=== PATIENT | male | born 1960 | race Two or more races ===

== ENCOUNTER 2019-11-18 05:06 | Inpatient (IN) | payer MEDICAID ==
[2019-11-18] VITALS (14 sets, daily range): BP systolic 102–143; BP diastolic 64–82
[~2019-11-18] VITALS: Ht 170.2 cm; Wt 95.3 kg
[2019-11-18] MEDS ORDERED: FAMOTIDINE/PF INJ 20 MG/2 ML VIAL IV ONE (06:20)
[2019-11-18] MEDS ORDERED: MIDAZOLAM HCL 2 MG/2ML VIAL ONE (06:20)
[2019-11-18] MEDS ORDERED: FENTANYL PF 250MCG/5ML AMPUL ONE (06:20)
[2019-11-18] MEDS ORDERED: ANESTHESIA TRAY IN PYXIS 1 EA TRAY MC ONE (06:32)
[2019-11-18] MEDS ORDERED: BUPIVACAINE 0.5 % PF 150 MG/30 ML VIAL ONE (07:28)
[2019-11-18] MEDS ORDERED: ZOLPIDEM TARTRATE 10 MG TABLET PO PRN (12:00)
[2019-11-18] MEDS ORDERED: DOCUSATE SODIUM 250 MG CAPSULE PO PRN (12:00)
[2019-11-18] MEDS ORDERED: SENNOSIDES 8.6 MG TABLET PO PRN (12:00)
[2019-11-18] MEDS ORDERED: BISACODYL SUPP (10 MG) 10 MG/SUPP.RECT SUPP.RECT RC PRN (12:00)
[2019-11-18] MEDS ORDERED: ONDANSETRON HCL/PF 4 MG/2 ML VIAL IV PRN (12:00)
[2019-11-18] MEDS: IV D5/0.45 NACL 1,000 ML IV PRN ×2 (13:25→23:22)
[2019-11-18] MEDS: ANCEF 1 GM/50 ML D5W IV SCH ×4 (15:40→23:34)
[2019-11-18] MEDS: HYDROCODONE/APAP 5/325MG 1 EACH TABLET PO PRN (21:16)
[2019-11-19] VITALS (8 sets, daily range): BP systolic 103–140; BP diastolic 54–89
[2019-11-19] MEDS ORDERED: PIPERACILLIN /TAZOBACTAM 3.375 G in IV D5W 100 ML IV SCH ×2
[2019-11-19] MEDS: HYDROCODONE/APAP 5/325MG 1 EACH TABLET PO PRN ×2 (03:20→09:43)
[2019-11-19 06:47] LABS: BASOPHILS % (AUTO) 0.5 % (0.0-2.0); EOSINOPHILS % (AUTO) 1.9 % (0.0-6.0); LYMPHOCYTES # (AUTO) 1.6 /CMM (0.8-4.8); LYMPHOCYTES % (AUTO) 28.7 % (20.0-44.0); MEAN CORPUSCULAR HGB CONC 33 g/dl (31.0-36.0); MEAN CORPUSCULAR VOLUME 86 fL (80-96); MONOCYTES # (AUTO) 0.6 /CMM (0.1-1.30); MONOCYTES % (AUTO) 10.3 % (2.0-12.0); NEUTROPHILS # (AUTO) 3.2 /CMM (1.8-8.9); NEUTROPHILS % (AUTO) 58.6 % (43.0-81.0); PLATELET COUNT (AUTO) 248 /CMM (150-450); RED BLOOD CELL COUNT(AUTO) 2.19 MIL/uL (4.5-6.0); WHITE BLOOD COUNT (AUTO) 5.5 K/uL (4.3-11.0)
[2019-11-19 06:50] LABS: HEMATOCRIT 19 % (39-51); HEMOGLOBIN 6.2 g/dL (13.5-17.5)
[2019-11-19 06:59] LABS: CALCIUM, SERUM 7.5 mg/dL (8.5-10.1); CREATININE 1.7 mg/dL (0.6-1.3); POTASSIUM 3.7 mmol/L (3.5-5.1)
[2019-11-19] MEDS ORDERED: INSULIN REGULAR, HUMAN 100 UNIT/ML 10 ML VIAL SQ ONE (08:30)
[2019-11-19] MEDS: IV D5/0.45 NACL 1,000 ML IV PRN (09:15)
[2019-11-19 10:38] LABS: EOSINOPHILS % (MANUAL) 2 % (0-4); LYMPHOCYTES % (MANUAL) 25 % (16-48); MONOCYTES % (MANUAL) 12 % (0-11.0); NEUTROPHILS % (MANUAL) 61 (42-76)
[2019-11-19] MEDS ORDERED: IV NS 0.9% 1,000 ML IV SCH (11:00)
[2019-11-19] MEDS ORDERED: DEXTROSE 50%-WATER 50 ML DISP.SYRIN IV PRN (11:00)
[2019-11-19] MEDS: IV NS 0.9% 1,000 ML IV PRN ×2 (11:49→22:01)
[2019-11-19] MEDS: BLOOD SUGAR DIAGNOSTIC 1 EACH STRIP IN SCH ×3 (12:14→21:55)
[2019-11-19] MEDS ORDERED: PIPERACILLIN /TAZOBACTAM 3.375 G in IV D5W 50 ML IV ONE (18:00)
[2019-11-19] MEDS ORDERED: FEE PK DOSING 1 MIN EA MC ONE (18:02)
[2019-11-19] MEDS: VANCOMYCIN 1.5 GM in IV D5W 500ml IV SCH (20:58)
[2019-11-19] MEDS: ACETAMINOPHEN 325 MG TABLET PO PRN (21:57)
[2019-11-19] MEDS: INSULIN GLARGINE, 100 UNIT/ML CARTRIDGE SQ SCH (22:08)
[2019-11-20] MEDS ORDERED: PIPERACILLIN /TAZOBACTAM 3.375 G in IV D5W 50 ML IV ONE ×2
[2019-11-20] MEDS: PIPERACILLIN /TAZOBACTAM 3.375 G in IV D5W 100 ML IV SCH ×4 (00:50→23:09)
[2019-11-20] MEDS: HYDROCODONE/APAP 5/325MG 1 EACH TABLET PO PRN ×3 (01:00→17:12)
[2019-11-20] MEDS: *INSULIN REGULAR(HUMULIN R)HUM 100 UNIT/ML VIAL SQ PRN ×2 (01:00→21:07)
[2019-11-20] MEDS: BLOOD SUGAR DIAGNOSTIC 1 EACH STRIP IN SCH ×4 (06:06→21:07)
[2019-11-20] MEDS: INSULIN REGULAR, HUMAN 100 UNIT/ML 3 ML VIAL SQ PRN (06:07)
[2019-11-20 07:05] LABS: HEMOGLOBIN 7.8 g/dL (13.5-17.5)
[2019-11-20 08:00] VITALS: BP 139/80
[2019-11-20 16:00] VITALS: BP 149/70
[2019-11-20 20:00] VITALS: BP 98/53
[2019-11-20] MEDS: VANCOMYCIN 1.5 GM in IV D5W 500ml IV SCH (20:50)
[2019-11-20] MEDS: INSULIN GLARGINE, 100 UNIT/ML CARTRIDGE SQ SCH (21:07)
[2019-11-20 21:32] VITALS: BP 98/53
[2019-11-21 04:00] VITALS: BP 105/66
[2019-11-21] MEDS: HYDROCODONE/APAP 5/325MG 1 EACH TABLET PO PRN (06:17)
[2019-11-21] MEDS: BLOOD SUGAR DIAGNOSTIC 1 EACH STRIP IN SCH ×4 (06:20→22:12)
[2019-11-21] MEDS: INSULIN REGULAR, HUMAN 100 UNIT/ML 3 ML VIAL SQ PRN (06:21)
[2019-11-21 07:03] LABS: BASOPHILS % (AUTO) 0.3 % (0.0-2.0); EOSINOPHILS % (AUTO) 0.1 % (0.0-6.0); HEMATOCRIT 22 % (39-51); HEMOGLOBIN 7.3 g/dL (13.5-17.5); LYMPHOCYTES # (AUTO) 1.6 /CMM (0.8-4.8); LYMPHOCYTES % (AUTO) 9.3 % (20.0-44.0); MEAN CORPUSCULAR HGB CONC 33 g/dl (31.0-36.0); MEAN CORPUSCULAR VOLUME 85 fL (80-96); MONOCYTES # (AUTO) 1.2 /CMM (0.1-1.30); NEUTROPHILS # (AUTO) 14.1 /CMM (1.8-8.9); NEUTROPHILS % (AUTO) 83.3 % (43.0-81.0); PLATELET COUNT (AUTO) 255 /CMM (150-450); RED BLOOD CELL COUNT(AUTO) 2.61 MIL/uL (4.5-6.0); WHITE BLOOD COUNT (AUTO) 16.9 K/uL (4.3-11.0)
[2019-11-21 07:40] LABS: CALCIUM, SERUM 8.2 mg/dL (8.5-10.1); CREATININE 1.7 mg/dL (0.6-1.3); MAGNESIUM 1.5 mg/dL (1.8-2.4); PHOSPHORUS 3.3 mg/dL (2.5-4.9); POTASSIUM 4.2 mmol/L (3.5-5.1)
[2019-11-21 08:00] VITALS: BP 94/51
[2019-11-21] MEDS: PIPERACILLIN /TAZOBACTAM 3.375 G in IV D5W 100 ML IV SCH ×2 (08:15→15:56)
[2019-11-21] MEDS ORDERED: PIPE3.379 IV (09:49)
[2019-11-21] MEDS ORDERED: VANC1.5V3 IV (09:49)
[2019-11-21] MEDS ORDERED: MAGNESIUM OXIDE 400 MG TABLET PO ONE (11:30)
[2019-11-21] MEDS ORDERED: HYDROCODONE/APAP 5/325MG 1 EACH TABLET PO PRN (12:30)
[2019-11-21 16:18] VITALS: BP 94/56
[2019-11-21 20:05] VITALS: BP 117/60
[2019-11-21] MEDS: ACETAMINOPHEN 325 MG TABLET PO PRN (20:34)
[2019-11-21] MEDS: MORPHINE SULFATE INJ 2 MG/ML DISP.SYRIN IV PRN (20:35)
[2019-11-21] MEDS: INSULIN GLARGINE, 100 UNIT/ML CARTRIDGE SQ SCH (22:00)
[2019-11-21] MEDS: VANCOMYCIN 1.5 GM in IV D5W 500ml IV SCH (22:20)
[2019-11-22] MEDS: PIPERACILLIN /TAZOBACTAM 3.375 G in IV D5W 100 ML IV SCH ×3 (00:18→17:33)
[2019-11-22] MEDS: MORPHINE SULFATE INJ 2 MG/ML DISP.SYRIN IV PRN ×3 (03:45→15:23)
[2019-11-22] MEDS: BLOOD SUGAR DIAGNOSTIC 1 EACH STRIP IN SCH ×4 (06:42→21:48)
[2019-11-22 07:05] LABS: CALCIUM, SERUM 8.3 mg/dL (8.5-10.1); CREATININE 1.9 mg/dL (0.6-1.3); MAGNESIUM 1.6 mg/dL (1.8-2.4); POTASSIUM 3.7 mmol/L (3.5-5.1)
[2019-11-22 09:13] VITALS: BP_SYST 100; BP_SYST 124; BP_DIAS 72
[2019-11-22] MEDS ORDERED: Magnesium 1GM/D5W 100ML PREMIX 100 ML IV SCH (11:35)
[2019-11-22] MEDS: ACETAMINOPHEN 325 MG TABLET PO PRN (15:20)
[2019-11-22 16:00] VITALS: BP 125/69
[2019-11-22 16:01] VITALS: BP 138/72
[2019-11-22] MEDS: HYDROCODONE/APAP 10/325MG 1 EA TABLET PO PRN ×2 (17:33→20:19)
[2019-11-22 19:29] LABS: BASOPHILS % (AUTO) 0.2 % (0.0-2.0); LYMPHOCYTES # (AUTO) 1.3 /CMM (0.8-4.8); LYMPHOCYTES % (AUTO) 6.4 % (20.0-44.0); MEAN CORPUSCULAR HGB CONC 33 g/dl (31.0-36.0); MEAN CORPUSCULAR VOLUME 85 fL (80-96); MONOCYTES # (AUTO) 1.3 /CMM (0.1-1.30); MONOCYTES % (AUTO) 6.8 % (2.0-12.0); NEUTROPHILS # (AUTO) 17.1 /CMM (1.8-8.9); NEUTROPHILS % (AUTO) 86.6 % (43.0-81.0); PLATELET COUNT (AUTO) 273 /CMM (150-450); WHITE BLOOD COUNT (AUTO) 19.7 K/uL (4.3-11.0)
[2019-11-22 19:30] LABS: HEMATOCRIT 20 % (39-51)
[2019-11-22 19:32] LABS: HEMOGLOBIN 6.7 g/dL (13.5-17.5)
[2019-11-22 20:00] VITALS: BP 109/70
[2019-11-22 20:20] LABS: LYMPHOCYTES % (MANUAL) 4 % (16-48); MONOCYTES % (MANUAL) 3 % (0-11.0); NEUTROPHILS % (MANUAL) 93 (42-76)
[2019-11-22] MEDS: VANCOMYCIN 1.5 GM in IV D5W 500ml IV SCH (20:54)
[2019-11-22] MEDS: INSULIN GLARGINE, 100 UNIT/ML CARTRIDGE SQ SCH (21:57)
[2019-11-22] MEDS: *INSULIN REGULAR(HUMULIN R)HUM 100 UNIT/ML VIAL SQ PRN (21:57)
[2019-11-22 23:45] VITALS: BP 117/72
[2019-11-23 00:05] VITALS: BP 109/69
[2019-11-23 00:35] VITALS: BP 118/72
[2019-11-23 01:35] VITALS: BP 124/85
[2019-11-23 02:55] VITALS: BP 146/85
[2019-11-23] MEDS: PIPERACILLIN /TAZOBACTAM 3.375 G in IV D5W 100 ML IV SCH ×3 (03:09→18:08)
[2019-11-23 05:02] LABS: APPEARANCE,URINE SL CLOUDY (CLEAR); BILIRUBIN,URINE NEGATIVE (NEGATIVE); BLOOD, URINE TRACE-INTA Ery/uL (NEGATIVE); COLOR,URINE YELLOW (YELLOW); KETONES,URINE NEGATIVE (NEGATIVE); LEUKOCYTE ESTERASE ,URINE NEGATIVE (NEGATIVE); NITRITE, URINE NEGATIVE (NEGATIVE); PH,URINE 5.5 (5.0-8.0); PROTEIN,URINE 30 mg/dl (NEGATIVE); UGLUCOSE NEGATIVE (NEGATIVE); UROBILINOGEN,URINE 0.2 EU/dL (0.2)
[2019-11-23 05:09] LABS: BACTERIA,URINE Few /HPF (None Seen); CREATININE, URINE 150.4 MG/DL (30.0-125.0); URINE TOTAL PROTEIN 112.5 mg/dL (0-11.9); WBC,URINE 21-50 /HPF (0-3)
[2019-11-23 05:10] LABS: SQUAMOUS EPITHELIAL CELL,UR Few /HPF (None Seen)
[2019-11-23 05:38] LABS: EOSINOPHIL,URINE None Seen
[2019-11-23] MEDS: BLOOD SUGAR DIAGNOSTIC 1 EACH STRIP IN SCH ×3 (06:05→18:08)
[2019-11-23] MEDS: MORPHINE SULFATE INJ 2 MG/ML DISP.SYRIN IV PRN ×2 (06:07→14:10)
[2019-11-23 07:11] LABS: BASOPHILS % (AUTO) 0.2 % (0.0-2.0); EOSINOPHILS % (AUTO) 0.1 % (0.0-6.0); HEMATOCRIT 23 % (39-51); HEMOGLOBIN 7.6 g/dL (13.5-17.5); LYMPHOCYTES # (AUTO) 1.3 /CMM (0.8-4.8); LYMPHOCYTES % (AUTO) 7.1 % (20.0-44.0); MEAN CORPUSCULAR HGB CONC 33 g/dl (31.0-36.0); MEAN CORPUSCULAR VOLUME 83 fL (80-96); MONOCYTES # (AUTO) 1.3 /CMM (0.1-1.30); MONOCYTES % (AUTO) 6.7 % (2.0-12.0); NEUTROPHILS # (AUTO) 16.2 /CMM (1.8-8.9); NEUTROPHILS % (AUTO) 85.9 % (43.0-81.0); PLATELET COUNT (AUTO) 268 /CMM (150-450); RED BLOOD CELL COUNT(AUTO) 2.73 MIL/uL (4.5-6.0); WHITE BLOOD COUNT (AUTO) 18.9 K/uL (4.3-11.0)
[2019-11-23 07:23] LABS: ALBUMIN 1.8 g/dL (3.4-5.0); CALCIUM, SERUM 8.2 mg/dL (8.5-10.1); CREATININE 2.1 mg/dL (0.6-1.3); MAGNESIUM 1.8 mg/dL (1.8-2.4); PHOSPHORUS 3.7 mg/dL (2.5-4.9); POTASSIUM 3.6 mmol/L (3.5-5.1); TOTAL PROTEIN, SERUM 7.5 g/dL (6.4-8.2)
[2019-11-23 08:00] VITALS: BP 120/78
[2019-11-23] MEDS: ACETAMINOPHEN 325 MG TABLET PO PRN (08:45)
[2019-11-23] MEDS: HYDROCODONE/APAP 10/325MG 1 EA TABLET PO PRN (08:57)
[2019-11-23 16:00] VITALS: BP 136/73
[2019-11-24 06:11] LABS: PTH, INTACT 31 pg/mL (15-65)
[2019-11-24 15:19] LABS: *SPE A/G RATIO 0.5 (0.7-1.7); *SPE ALBUMIN 2.1 g/dL (2.9-4.4); *SPE ALPHA-1-GLOBULIN 0.6 g/dL (0.0-0.4); *SPE GLOBULIN, TOTAL 4.6 g/dL (2.2-3.9); *SPE M-SPIKE Not Observed g/dL (Not Observed)
== END 2019-11-23 20:00 | disposition home health service (06) | DRG 313 ==
LOC: DS 05:06 → MED 09:30
PROVIDERS: ADMIT Internal Medicine; ATTEND Internal Medicine
DX: M00.9 Pyogenic arthritis, unspecified (principal); N17.0 Acute kidney failure with tubular necrosis; E11.22 Type 2 diabetes mellitus with diabetic chronic kidney disease; E11.65 Type 2 diabetes mellitus with hyperglycemia; D62 Acute posthemorrhagic anemia; E66.01 Morbid (severe) obesity due to excess calories; L02.416 Cutaneous abscess of left lower limb; M65.88 Other synovitis and tenosynovitis, other site; E87.1 Hypo-osmolality and hyponatremia; I12.9 Hypertensive chronic kidney disease with stage 1 through stage 4 chronic kidney disease, or unspecified chronic kidney disease; N18.3 Chronic kidney disease, stage 3 (moderate); L92.9 Granulomatous disorder of the skin and subcutaneous tissue, unspecified; Z68.32 Body mass index [BMI] 32.0-32.9, adult; M10.9 Gout, unspecified; E86.1 Hypovolemia; D63.8 Anemia in other chronic diseases classified elsewhere; Z83.3 Family history of diabetes mellitus
CPT/HCPCS: 36415; 71045-TC; 76770-TC; 80048-TC; 80053-TC; 80202-TC; 81000-TC; 82550-TC; 82570-TC; 82962-TC; 83605-TC; 83735-TC; 83970; 84100-TC; 84155; 84155-TC; 84165; 84300-TC; 85025-TC; 85027-TC; 85652-TC; 86140-TC; 86850-TC; 86921-TC; 87040-TC; 87070-TC; 87075-TC; 87081-TC; 87086-TC; 88305-TC; 97110-TC; 97112-TC; 97530-TC; A4217; A6253; C1751; G0378; J0690; J1815; J2250; J2270; J2405; J2543; J2704; J2765; J3010; J3370; J3475; J3490; J7030; J7050; J7060; P9016-BL